=== PATIENT | male | born 1960 | race Caucasian/White ===

== ENCOUNTER 2018-12-10 16:11 | Emergency (ER) | payer MEDICAID ==
[~2018-12-10] VITALS: Ht 177.8 cm; Wt 78.9 kg
[2018-12-10 16:20] VITALS: BP 152/74
--- NOTE | 2018-12-10 16:54 | NUR ---
58 YO MALE BIB FAMILY FOR LACERATION TO LEFT SIDE OF FACE BLEEDING CONTROLLED APPROX 4 CM LONG. DENIES N/V/D; SKIN IS PINK/WARM/DRY; AAOX4 WITH EVEN AND STEADY GAIT; LUNGS CLEAR BL; HR EVEN AND REGULAR; PT DENIES ANY FEVER, CP, SOB, OR COUGH AT THIS TIME; VSS; PATIENT POSITIONED FOR COMFORT; HOB ELEVATED; BEDRAILS UP X2; BED DOWN. ER MD MADE AWARE OF PT STATUS.
[2018-12-10 19:35] VITALS: BP 137/84
--- NOTE | 2018-12-10 19:35 | NUR ---
Patient discharged with v/s stable. Written and verbal after care instructions given and explained. Patient verbalized understanding. Ambulatory with steady gait. All questions addressed prior to discharge. Advised to follow up with PMD.
== END 2018-12-10 19:35 | disposition home or self-care (01) ==
LOC: MED 16:11
DX: S01.412A Laceration without foreign body of left cheek and temporomandibular area, initial encounter (principal); W45.8XXA Other foreign body or object entering through skin, initial encounter; W18.09XA Striking against other object with subsequent fall, initial encounter; Y93.89 Activity, other specified; Y92.89 Other specified places as the place of occurrence of the external cause; Y99.8 Other external cause status
CPT/HCPCS: 12014; 70450; 90471; 90715; 99284

== ENCOUNTER 2023-01-28 16:49 | Emergency (ER) | payer MEDICAID, OTHER ==
--- NOTE | 2023-01-28 17:50 | NUR ---
CALLED X 1. NO SHOW. Addendum: 01/28/23 at 1827 by [facility] PATIENT LEFT WITHOUT BEING SEEN BY DR. MONTES. NO FURTHER CARE PROVIDED FOR PATIENT.
--- NOTE | 2023-01-28 18:17 | NUR ---
CALLEDX2 . NO SHOW
[2023-01-28] MEDS ORDERED: FAMO-90 PO (22:22)
== END 2023-01-28 17:50 | disposition left against medical advice (07) ==
LOC: MED 16:49
DX: R10.9 Unspecified abdominal pain (principal); Z53.21 Procedure and treatment not carried out due to patient leaving prior to being seen by health care provider

== ENCOUNTER 2023-01-28 18:39 | Emergency (ER) | payer OTHER ==
[~2023-01-28] VITALS: Ht 162.6 cm; Wt 78.9 kg
--- NOTE | 2023-01-28 19:23 | NUR ---
TO LOBBY AMBULATORY A/W BED
[2023-01-28] MEDS ORDERED: DICYCLOMINE HCL LIQUID 20 MG, ALUMINUM HYD/MAG/SIMETHICONE 30 ML, LIDOCAINE VISCOUS 2% ... PO ONE ×3 (20:10)
[2023-01-28] MEDS ORDERED: FAMOTIDINE 20 MG TAB PO ONE (20:10)
[2023-01-28] MEDS ORDERED: ALUMINUM HYD/MAG/SIMETHICONE 30 ML UDC ONE (20:55)
[2023-01-28] MEDS ORDERED: DICYCLOMINE HCL LIQUID 10 MG/5 ML UDC ONE (20:55)
[2023-01-28 21:11] LABS: BASOPHILS % (AUTO) 0.5 % (0.0-2.0); EOSINOPHILS # (AUTO) 0.1 K/uL (0-0.4); EOSINOPHILS % (AUTO) 0.9 % (0.0-4.0); HEMATOCRIT 44.2 % (36-52); HEMOGLOBIN 14.9 g/dL (12.0-18.0); LYMPHOCYTES # (AUTO) 1.5 K/uL (2.0-11.5); LYMPHOCYTES % (AUTO) 20.4 % (20.5-51.1); MEAN CORPUSCULAR HEMOGLOBIN 29 pg (27-31); MEAN CORPUSCULAR HGB CONC 34 g/dL (33-37); MEAN CORPUSCULAR VOLUME 86.1 fL (80-94); MONOCYTES % (AUTO) 13.3 % (1.7-9.3); NEUTROPHILS # (AUTO) 4.8 K/uL (1.8-7.7); NEUTROPHILS % (AUTO) 64.9 % (42.2-75.2); PLATELET COUNT (AUTO) 324 K/uL (140-450); RED BLOOD CELL COUNT(AUTO) 5.13 MIL/uL (4.20-6.10); RED CELL DISTRIBUTION WIDTH 13.4 % (11.6-13.7); WHITE BLOOD COUNT (AUTO) 7.4 K/uL (4.8-10.8)
[2023-01-28 21:42] LABS: ALBUMIN 4.3 g/dL (3.4-5.0); ANION GAP 11.5 (8-16); ASPARTATE AMINOTRANSFERASE 25 U/L (15-37); CARBON DIOXIDE 27.3 mmol/L (21-32); CHLORIDE 99 mmol/L (98-107); CREATININE 0.9 mg/dL (0.6-1.3); GFR ARICAN-AMERICAN 110 mL/min (>90); GLUCOSE 109 mg/dL (74-106); LIPASE 101 U/L (73-393); POTASSIUM 3.8 mmol/L (3.5-5.1); SODIUM SERUM 134 mmol/L (136-145); TOTAL BILIRUBIN 0.6 mg/dL (0.0-1.0); UREA NITROGEN, BLOOD 17 mg/dL (7-18)
[2023-01-28] MEDS ORDERED: FAMO-90 PO (22:22)
== END 2023-01-28 22:45 | disposition home or self-care (01) ==
LOC: MED 18:39
DX: R10.13 Epigastric pain (principal); F10.10 Alcohol abuse, uncomplicated; Z79.899 Other long term (current) drug therapy; Y90.9 Presence of alcohol in blood, level not specified
CPT/HCPCS: 36415; 71045; 80053; 83690; 84484; 85025; 93005; 99285

== ENCOUNTER 2024-06-24 12:53 | Emergency (ER) | payer OTHER ==
[~2024-06-24] VITALS: Ht 170.2 cm; Wt 77.1 kg
[~2024-06-24 12:53] MED LIST: FAMO-90 PO
[2024-06-24 13:08] VITALS: BP 119/70; PULSE 83; RESP 20; TEMP 98.3; O2SAT 99
[2024-06-24 13:25] VITALS: O2SAT 99
[2024-06-24] MEDS ORDERED: IBUP-2213 PO (13:36)
[2024-06-24] MEDS ORDERED: CEPH-588 PO (13:36)
[2024-06-24] MEDS: cephALEXin 500 MG CAP PO ONE (13:52)
[2024-06-24] MEDS: IBUPROFEN 600 MG TAB PO ONE (13:52)
[2024-06-24 13:56] VITALS: BP 119/70; PULSE 83; RESP 20; TEMP 98.3; O2SAT 99
== END 2024-06-24 13:55 | disposition home or self-care (01) ==
LOC: MED 12:53
DX: L03.116 Cellulitis of left lower limb (principal); Z79.1 Long term (current) use of non-steroidal anti-inflammatories (NSAID); Z79.899 Other long term (current) drug therapy
CPT/HCPCS: 99283

== ENCOUNTER 2024-06-26 14:04 | Emergency (ER) | payer OTHER ==
[~2024-06-26] VITALS: Ht 170.2 cm; Wt 77.1 kg
[~2024-06-26 14:04] MED LIST changes: +CEPH-588 PO; +IBUP-2213 PO
[2024-06-26 14:32] VITALS: BP 164/115; PULSE 77; RESP 19; TEMP 98.1; O2SAT 97
[2024-06-26 15:24] LABS: BASOPHILS % (AUTO) 0.3 % (0.0-2.0); EOSINOPHILS % (AUTO) 0.4 % (0.0-4.0); HEMATOCRIT 41.6 % (36-52); HEMOGLOBIN 13.8 g/dL (12.0-18.0); LYMPHOCYTES # (AUTO) 1.4 K/uL (2.0-11.5); LYMPHOCYTES % (AUTO) 15.2 % (20.5-51.1); MEAN CORPUSCULAR HEMOGLOBIN 29 pg (27-31); MEAN CORPUSCULAR HGB CONC 33 g/dL (33-37); MEAN CORPUSCULAR VOLUME 86.9 fL (80-94); MONOCYTES # (AUTO) 1.4 K/uL (0.8-1.0); MONOCYTES % (AUTO) 15.1 % (1.7-9.3); NEUTROPHILS # (AUTO) 6.5 K/uL (1.8-7.7); PLATELET COUNT (AUTO) 294 K/uL (140-450); RED BLOOD CELL COUNT(AUTO) 4.79 MIL/uL (4.20-6.10); RED CELL DISTRIBUTION WIDTH 13.9 % (11.6-13.7); WHITE BLOOD COUNT (AUTO) 9.4 K/uL (4.8-10.8)
[2024-06-26] MEDS: CLINDAMYCIN 600 MG/4 ML VIAL IM ONE (15:26)
[2024-06-26 15:33] LABS: ANION GAP 13.1 (8-16); CALCIUM 9.1 mg/dL (8.5-10.1); CREATININE 0.9 mg/dL (0.6-1.3); POTASSIUM 4.1 mmol/L (3.5-5.1)
[2024-06-26] MEDS ORDERED: BACTO TP (15:57)
[2024-06-26] MEDS ORDERED: CLIN300C2 PO (15:57)
[2024-06-26 16:22] VITALS: BP 152/75; PULSE 66; RESP 19; O2SAT 94
== END 2024-06-26 16:22 | disposition home or self-care (01) ==
LOC: MED 14:04
DX: L03.116 Cellulitis of left lower limb (principal); R03.0 Elevated blood-pressure reading, without diagnosis of hypertension; Z79.1 Long term (current) use of non-steroidal anti-inflammatories (NSAID); Z79.2 Long term (current) use of antibiotics; Z79.899 Other long term (current) drug therapy
CPT/HCPCS: 36415; 73630; 80048; 85025; 96372; 99284; J3490; 99285